=== PATIENT | female | born 1995 | race Caucasian/White ===

== ENCOUNTER 2016-04-29 14:19 | Emergency (ER) | payer MEDICAID ==
[~2016-04-29] VITALS: Ht 149.9 cm; Wt 41.0 kg
[~2016-04-29 14:19] MED LIST: CALC600T5 PO; PREN-46 PO; PREN1TAB67 PO
[2016-04-29 14:39] VITALS: Ht 149.9 cm; Wt 41.0 kg
[2016-04-29] MEDS ORDERED: IBUPROFEN 200 MG TAB ONE (15:44)
[2016-04-29] MEDS ORDERED: IBUPROFEN 200 MG TAB PO ONE (16:00)
[2016-04-29] MEDS ORDERED: IBUP400T22 PO (17:32)
--- NOTE | 2016-04-29 18:11 | RADRPT ---
PROCEDURE: XR Chest. CLINICAL INDICATION: Chest pain TECHNIQUE: Single frontal chest x-ray. COMPARISON: None. FINDINGS: No acute infiltrate, pleural effusion or pneumothorax is identified. Cardiomediastinal silhouette i s within normal limits. The osseous structures are unremarkable. IMPRESSION: 1. Unremarkable chest x-ray. RPTAT: QQ .Sohan Colon MD, MD Date Time Electronically viewed and signed by .Sohan Colon MD, on 04/29/2016 17:17 .R/
--- NOTE | 2016-04-29 18:21 | ERD ---
ER Documentation Chief Complaint Date/Time DATE: 04/29/16 TIME: 18:19 Chief Complaint INTERMITTENT CHEST PAIN X2-3 WEEKS HPI 21-year-old female with no significant past medical history presents the ED complaining of chest pain that started intermittently 1 month ago. States that it is predominantly in the left side of her chest. States that she has also been feeling nervous and anxious. Describes it as a sharp sensation and slightly radiates to her left arm. Denies any smoking, drug use, alcohol use. Denies any family history of heart attacks. Denies any fever, cough, rhinorrhea , wheezing, abdominal pain, nausea, vomiting. ROS All systems reviewed and are negative except as per history of present illness. Medications Home Meds Active Scripts Ibuprofen* (Motrin*) 400 Mg Tab, 400 MG PO Q6, #30 TAB Prov:KAYCE MC PA-C 04/29/16 Reported Medications Calcium Carbonate (CALCIUM) 600 Mg Tablet, 600 MG PO DAILY 09/24/13 Vits W-Ca,Fe,Fa(<1MG) ( Formula) 1 Each Tablet, 1 EACH PO DAILY 09/24/13 Vit #108/Iron/Fa ( ONE TABLET) 1 Each Tablet, 1 EACH PO DAILY 06/22/13 Allergies Allergies: Coded Allergies: No Known Allergy (Unverified , 10/03/13) PMhx/Soc History of Surgery: No Anesthesia Reaction: No Hx Neurological Disorder: No Hx Respiratory Disorders: No Hx Cardiac Disorders: No Hx Psychiatric Problems: No Hx Miscellaneous Medical Probl: No Hx Alcohol Use: No Hx Substance Use: No Hx Tobacco Use: No Physical Exam Vitals Vital Signs Date Time Temp Pulse Resp B/P Pulse Ox O2 Delivery O2 Flow Rate FiO2 04/29/16 14:39 98.4 75 18 110/58 99 Physical Exam Const: Low-mzz-sqfjjthuo, well-nourished. In no acute distress. Head: Atraumatic, normocephalic Eyes: Normal Conjunctiva without injection. No purulent discharge. PERRL. EOMI ENT: Normal external ear. Ear canal without erythema. Tympanic membrane pearly hoang without effusion or bulging. Nasal canal clear with normal turbinates. Moist oropharynx without tonsillar exudates. Non-erythematous pharynx. Uvula midline. No drooling. No trismus. Neck: Full range of motion. No meningismus. No cervical lymphadenopathy. Resp: Clear to auscultation bilaterally. No wheezing, rhonchi, rales, or crackles. No accessory muscle use. No retractions. Cardio: Regular rate and rhythm. No murmurs, rubs or gallops. Chest: Left-sided chest pain is reproducible upon palpation, tender to palpation. Abd: Soft, non tender, non distended. Normal bowel sounds. No palpable masses. No rebound tenderness. No guarding. Skin: No petechiae or rashes Back: No midline tenderness. No CVA tenderness. Ext: No cyanosis, or edema. Neur: Awake and alert. Psych: Normal Mood and Affect Results 24 hrs Current Medications Medications (Trade) Dose Ordered Sig/Berry Route PRN Reason Start Time Stop Time Status Last Admin Dose Admin Ibuprofen (Motrin) 400 mg ONCE ONCE PO 04/29/16 16:00 04/29/16 16:01 DC 04/29/16 15:45 Procedures/MDM This is a 21-year-old female with no significant past medical history presents the ED complaining of chest pain that started 1 month ago intermittently. Patient is afebrile nontoxic appearing. Patient has normal vital signs. A chest x-ray, EKG was ordered to further evaluate patient. She was treated here in the ED with ibuprofen with improvement of her pain. PROCEDURE: XR Chest. CLINICAL INDICATION: Chest pain TECHNIQUE: Single frontal chest x-ray. COMPARISON: None. FINDINGS: No acute infiltrate, pleural effusion or pneumothorax is identified. Cardiomediastinal silhouette is within normal limits. The osseous structures are unremarkable. IMPRESSION: 1. Unremarkable chest x-ray. EKG reviewed and interpreted by Dr. Luna Rate/Rhythm: [72 bpm, Normal Sinus Rhythm] No ectopy, no ST elevations, normal axis. QRS, ST, T-waves: [No changes consistent w/ acute ischemia] Impression: [No evidence of ischemia or arrhythmia] Low suspicion for acute myocardial infarction, pneumothorax, pulmonary embolism , AAA, aortic dissection, Boerhaave's syndrome, cardiac dysrhythmias,meningitis , intracranial bleed, seizure, stroke, TIA or other emergent conditions. Discharge medications: Ibuprofen Follow up with primary care physician in 1-2 days. Instructed patient to return to the ED sooner for any worsening symptoms. Patient's questions were answered. Patient understood and agreed with discharge plan. Patient discharged stable. Departure Diagnosis: Primary Impression: Chest pain Chest pain type: unspecified Qualified Code: R07.9 - Chest pain, unspecified type Condition: Stable Patient Instructions: Anxiety Reaction, Chest Wall Pain, Costochondritis Referrals: [facility] YOU HAVE RECEIVED A MEDICAL SCREENING EXAM AND THE RESULTS INDICATE THAT YOU DO NOT HAVE A CONDITION THAT REQUIRES URGENT TREATMENT IN THE EMERGENCY DEPARTMENT. FURTHER EVALUATION AND TREATMENT OF YOUR CONDITION CAN WAIT UNTIL YOU ARE SEEN IN YOUR DOCTORS OFFICE WITHIN THE NEXT 1-2 DAYS. IT IS YOUR RESPONSIBILITY TO MAKE AN APPOINTMENT FOR FOLOW-UP CARE. IF YOU HAVE A PRIMARY DOCTOR --you should call your primary doctor and schedule an appointment IF YOU DO NOT HAVE A PRIMARY DOCTOR YOU CAN CALL OUR PHYSICIAN REFERRAL HOTLINE AT IF YOU CAN NOT AFFORD TO SEE A PHYSICIAN YOU CAN CHOSE FROM THE FOLLOWING [facility] [address] [address] [facility]. [facility] [address] [facility] [address] [address] [facility] [address] [facility] [address] [facility]. [facility]. [address] [facility]. [facility] YOU HAVE RECEIVED A MEDICAL SCREENING EXAM AND THE RESULTS INDICATE THAT YOU DO NOT HAVE A CONDITION THAT REQUIRES URGENT TREATMENT IN THE EMERGENCY DEPARTMENT. FURTHER EVALUATION AND TREATMENT OF YOUR CONDITION CAN WAIT UNTIL YOU ARE SEEN IN YOUR DOCTORS OFFICE WITHIN THE NEXT 1-2 DAYS. IT IS YOUR RESPONSIBILITY TO MAKE AN APPOINTMENT FOR FOLOW-UP CARE. IF YOU HAVE A PRIMARY DOCTOR --you should call your primary doctor and schedule and appointment IF YOU DO NOT HAVE A PRIMARY DOCTOR YOU CAN CALL OUR PHYSICIAN REFERRAL HOTLINE AT . IF YOU CAN NOT AFFORD TO SEE A PHYSICIAN YOU CAN CHOSE FROM THE FOLLOWING [facility] INSTITUTIONS: [facility] [address] [place] [address] [facility] [address] [place] [address] [facility] + [address] [place] [address] [facility] Additional Instructions: FOLLOW UP WITH YOUR PRIMARY CARE PHYSICIAN TOMORROW.Return to this facility if you are not improving as expected. KAYCE MC PA-C Apr 29, 2016 18:21
== END 2016-04-29 18:00 | disposition home or self-care (01) ==
LOC: FTE 14:19
DX: R07.9 Chest pain, unspecified (principal)
CPT/HCPCS: 71010; 93005; Z7502

== ENCOUNTER 2016-05-05 14:10 | Emergency (ER) | payer MEDICAID ==
[~2016-05-05] VITALS: Ht 162.6 cm; Wt 41.5 kg
[~2016-05-05 14:10] MED LIST changes: +IBUP400T22 PO
[2016-05-05 14:12] VITALS: Ht 162.6 cm; Wt 41.5 kg
[2016-05-05 17:08] LABS: URINE BLOOD (Dip) POC Trace-lysed (NEGATIVE)
[2016-05-05] MEDS ORDERED: NITR-58 PO (18:24)
[2016-05-05] MEDS ORDERED: IBUP-1542 PO (18:24)
[2016-05-05 18:40] VITALS: BP 105/57; PULSE 114; RESP 20; TEMP 97.9
--- NOTE | 2016-05-05 20:33 | ERD ---
ER Documentation Chief Complaint Date/Time DATE: 05/05/16 TIME: 20:21 Chief Complaint CONTANT VAGINAL PAIN X2 DAYS HPI This is a 21 year old female presenting to ER for suprapubic pain and pain with urination starting this morning after intercourse. Patient states she has dysuria. No hematuria. No vaginal discharge or vaginal itching. No vaginal lesions or sores. No difficulty urinating or incontinence. A1. Denies chance of . LMP 04/13/16. Patient has an IUD and states that she would like it removed. Had the IUD placed 2 years ago. ROS All systems reviewed and are negative except as per history of present illness. Medications Home Meds Active Scripts Ibuprofen* (Motrin*) 600 Mg Tab, 600 MG PO Q6, #10 TAB Prov:RAUL HIGGINS NP 05/05/16 Nitrofurantoin Monohyd Macrocr* (Macrobid*) 100 Mg Capsr, 100 MG PO BID for 5 Days, CAP Prov:RAUL HIGGINS NP 05/05/16 Ibuprofen* (Motrin*) 400 Mg Tab, 400 MG PO Q6, #30 TAB Prov:KAYCE MC PA-C 04/29/16 Reported Medications Calcium Carbonate (CALCIUM) 600 Mg Tablet, 600 MG PO DAILY 09/24/13 Vits W-Ca,Fe,Fa(<1MG) ( Formula) 1 Each Tablet, 1 EACH PO DAILY 09/24/13 Vit #108/Iron/Fa ( ONE TABLET) 1 Each Tablet, 1 EACH PO DAILY 06/22/13 Allergies Allergies: Coded Allergies: No Known Allergy (Unverified , 10/03/13) PMhx/Soc Medical and Surgical Hx: pt denies Medical Hx History of Surgery: No Anesthesia Reaction: No Hx Neurological Disorder: No Hx Respiratory Disorders: No Hx Cardiac Disorders: No Hx Psychiatric Problems: No Hx Miscellaneous Medical Probl: No Hx Alcohol Use: No Hx Substance Use: No Hx Tobacco Use: No Smoking Status: Never smoker Physical Exam Vitals Vital Signs Date Time Temp Pulse Resp B/P Pulse Ox O2 Delivery O2 Flow Rate FiO2 05/05/16 18:40 97.9 114 20 105/57 05/05/16 14:12 98.1 121 18 125/69 98 Physical Exam Const: NAD, alert Head: Atraumatic Eyes: Normal Conjunctiva ENT: Normal External Ears, Nose and Mouth. Neck: Full range of motion..~ No meningismus. Resp: Clear to auscultation bilaterally Cardio: Regular rate and rhythm, no murmurs Abd: Soft, non tender, non distended. Normal bowel sounds Skin: No petechiae or rashes Back: No midline or flank tenderness Ext: No cyanosis, or edema Neur: Awake and alert Psych: Normal Mood and Affect : IUD in place in cervix. No vaginal discharge or foul odor. No vaginal lesions or sores. Results 24 hrs Laboratory Tests Test 05/05/16 17:08 Bedside Urine Blood Trace-lysed Bedside Urine Glucose (UA) Negative Bedside Urine Ketones (LAB) Negative Bedside Urine Leukocyte Esterase (L 1+ Bedside Urine Nitrite (LAB) Negative Bedside Urine Protein (LAB) Negative Bedside Urine pH (LAB) 5.5 Procedures/MDM ED course Urine collected and 1+ leukocyte esterase and trace blood. Pelvic exam performed. No obvious abnormalities. Verbal consent obtained. Using a speculum, the cervix was located and IUD noted to be in place in the cervix. IUD removed using removal forceps without complication. IUD removed fully intact. No bleeding. Patient had minimal pain during procedure and states that she does not having pain. No fevers. Vital signs are stable. Low suspicion for tubo-ovarian abscess, pelvic fibroids, ruptured ovarian cyst or pyelonephritis. Diagnosis is UTI. Patient is appropriate for outpatient management and will be discharged with Macrobid and ibuprofen. Instructed patient to follow up with [facility] in the next 2-3 days for reassessment Resources provided. Return to ED for any new or worsening symptoms. Patient verbalizes understanding. All questions answered at discharge. Departure Diagnosis: Primary Impression: UTI (urinary tract infection) Urinary tract infection type: site unspecified Hematuria presence: with hematuria Qualified Code: N39.0 - Urinary tract infection with hematuria, site unspecified Condition: Stable Patient Instructions: Understanding Urinary Tract Infections (UTIs) Referrals: [facility] [address] [facility] [address] [place] [address] OFFICE FAX JAQUAN WATERS [address] [place] [address] HARRIS, MARY [address], [place] [address] DR HAILE, HESHMAT [address] [facility], [address], [place] [address] DR GAN, [facility] [address] [facility], [place] [address] [facility] [address] [place] [address] [facility], [facility] [address] - DR AGUILAR, ETHAN [address], [place] [address] DR ALEMAN, RUBI [address] [facility]. [address], [place] [address] DR PLAZA, [facility] [address] [place] [address] Additional Instructions: Llame al doctor MAANA y ernesto indu JOSEPH PARA DENTRO DE 2-3 RANGEL.Dgale a la secretaria que nosotros le instruimos hacer esta joseph.Avise o llame si negrete condicin se empeora antes de la joseph. Regresa aqui si peor o no mejor. Return to ED for any high fever, chest pain, difficulty breathing, shortness breath, wheezing, vomiting, diarrhea, abdominal pain or any new or worsening symptoms. RAUL HIGGINS NP May 05, 2016 20:32
== END 2016-05-05 18:30 | disposition home or self-care (01) ==
LOC: FTE 14:10
DX: N39.0 Urinary tract infection, site not specified (principal)
CPT/HCPCS: 81003; Z7502; 99284

== ENCOUNTER 2016-12-14 21:13 | Emergency (ER) | payer MEDICAID ==
[~2016-12-14] VITALS: Ht 144.8 cm; Wt 42.5 kg
[~2016-12-14 21:13] MED LIST changes: +IBUP-1542 PO; +NITR-58 PO
[2016-12-14 21:52] VITALS: Ht 144.8 cm; Wt 42.5 kg
[2016-12-14 23:01] LABS: BASOPHIL # 0.1 10^3/ul (0.0-0.1); BASOPHILS % 0.6 % (0.0-2.0); EOSINOPHILS # 0.2 10^3/ul (0.0-0.5); HEMATOCRIT 37.6 % (37.0-47.0); HEMOGLOBIN 12.7 g/dl (12.0-16.0); LYMPHOCYTES # 3.8 10^3/ul (0.8-2.9); MEAN CORPUSCULAR HEMOGLOBIN 30.6 pg (29.0-33.0); MEAN CORPUSCULAR HGB CONC 33.8 g/dl (32.0-37.0); MEAN CORPUSCULAR VOLUME 90.6 fl (72.0-104.0); MEAN PLATELET VOLUME 10.3 fl (7.4-10.4); MONOCYTE # 0.8 10^3/ul (0.3-0.9); MONOCYTES % 8.7 % (0.0-13.0); NEUTROPHILS % 44.4 % (30.0-74.0); PLATELET COUNT 381 10^3/UL (140-415); RED BLOOD COUNT 4.15 10^6/ul (4.20-5.40); RED CELL DISTRIBUTION WIDTH 12.8 % (11.5-14.5); WHITE BLOOD COUNT 8.6 10^3/ul (4.8-10.8)
[2016-12-14 23:18] LABS: INR 0.96; PROTIME 12.8 Sec (12.2-14.2)
[2016-12-14 23:19] LABS: ANION GAP 14 (8-16); BLOOD UREA NITROGEN 13 mg/dl (7-20); CALCIUM 9.6 mg/dl (8.4-10.2); CARBON DIOXIDE 29 mmol/L (21-31); CHLORIDE 99 mmol/L (97-110); CREATININE 0.81 mg/dl (0.44-1.00); GLUCOSE 91 mg/dl (70-220); POTASSIUM 3.7 mmol/L (3.5-5.1); SODIUM 138 mmol/L (135-144)
[2016-12-14 23:32] LABS: TROPONIN-I < 0.012 ng/ml (0.00-0.12)
--- NOTE | 2016-12-14 23:47 | RADRPT ---
PROCEDURE: XR Chest. CLINICAL INDICATION: Chest pain. TECHNIQUE: Single frontal view of the chest. COMPARISON: None. FINDINGS: The cardiomediastinal silhouette is within normal limits. The lungs are clear. No signs of pleural f luid or pneumothorax are seen. The osseous structures and soft tissues are unremarkable. IMPRESSION: No evidence for active cardiopulmonary disease. RPTAT: UU Physician Roderick Date Time Electronically viewed and signed by Physician Roderick on 12/14/2016 23:46 RS/
[2016-12-14] MEDS ORDERED: IBUP400T22 PO (23:58)
[2016-12-14] MEDS ORDERED: CYCL-319 PO (23:58)
[2016-12-15 00:16] VITALS: BP 101/58; PULSE 65; RESP 16
--- NOTE | 2016-12-15 05:50 | ERD ---
ER Documentation Chief Complaint Date/Time DATE: 12/15/16 TIME: 05:41 Chief Complaint CHEST PAIN X1DAY (RAUL HIGGINS NP) HPI This is a 21 year old female presenting to ER with chest wall pain, neck pain and paraesthesia to left upper arm 3 days patient states she has numbness and tingling to left arm upper arm that extends from left lateral neck. Patient also has chest wall pain that she describes as sharp and stabbing. Patient rates pain 10/10. Patient did not take any medications at home for this. Denies headache. No cough, shortness breath or difficulty breathing. Patient states she has intermittent weakness to left side. (RAUL HIGGINS NP) ROS All systems reviewed and are negative except as per history of present illness. (RAUL HIGGINS NP) Medications Home Meds Active Scripts Ibuprofen* (Motrin*) 400 Mg Tab, 400 MG PO Q6, #10 TAB Prov:RAUL HIGGINS NP 12/14/16 Cyclobenzaprine Hcl* (Cyclobenzaprine Hcl*) 10 Mg Tablet, 10 MG PO TID, #15 TAB Prov:RAUL HIGGINS NP 12/14/16 Ibuprofen* (Motrin*) 600 Mg Tab, 600 MG PO Q6, #10 TAB Prov:RAUL HIGGINS NP 05/05/16 Nitrofurantoin Monohyd Macrocr* (Macrobid*) 100 Mg Capsr, 100 MG PO BID for 5 Days, CAP Prov:RAUL HIGGINS NP 05/05/16 Ibuprofen* (Motrin*) 400 Mg Tab, 400 MG PO Q6, #30 TAB Prov:KAYCE MC PA-C 04/29/16 Reported Medications Calcium Carbonate (CALCIUM) 600 Mg Tablet, 600 MG PO DAILY 09/24/13 Vits W-Ca,Fe,Fa(<1MG) ( Formula) 1 Each Tablet, 1 EACH PO DAILY 09/24/13 Vit #108/Iron/Fa ( ONE TABLET) 1 Each Tablet, 1 EACH PO DAILY 06/22/13 Allergies Allergies: Coded Allergies: No Known Allergy (Unverified , 10/03/13) PMhx/Soc Medical and Surgical Hx: pt denies Medical Hx, pt denies Surgical Hx History of Surgery: No Anesthesia Reaction: No Hx Neurological Disorder: No Hx Respiratory Disorders: No Hx Cardiac Disorders: No Hx Psychiatric Problems: No Hx Miscellaneous Medical Probl: No Hx Alcohol Use: No Hx Substance Use: No Hx Tobacco Use: No Smoking Status: Never smoker (RAUL HIGGINS NP) Physical Exam Vitals Vital Signs Date Time Temp Pulse Resp B/P Pulse Ox O2 Delivery O2 Flow Rate FiO2 12/15/16 00:16 65 16 101/58 100 Room Air 12/14/16 21:52 98.7 88 16 104/59 100 (SHELLI BLOOD MD) Physical Exam Const: Alert, [id number] Head: Atraumatic Eyes: Normal Conjunctiva ENT: Normal External Ears, Nose and Mouth. Neck: Full range of motion..~ No meningismus. Resp: Clear to auscultation bilaterally. No wheezing, rhonchi or crackles. Cardio: Regular rate and rhythm, no murmurs Abd: Soft, non tender, non distended. Normal bowel sounds Skin: No petechiae or rashes Back: No midline or flank tenderness Ext: No cyanosis, or edema. Full mobility to bilateral upper extremities. Strength is equal bilaterally. Paresthesia to lateral left upper arm. Sensation is fully intact. Neur: Awake and alert Psych: Normal Mood and Affect (RAUL HIGGINS NP) Result Diagram: 12/14/16225012/14/162250 Results 24 hrs Laboratory Tests Test 12/14/16 22:51 White Blood Count 8.610^3/ul Red Blood Count 4.1510^6/ul Hemoglobin 12.7g/dl Hematocrit 37.6% Mean Corpuscular Volume 90.6fl Mean Corpuscular Hemoglobin 30.6pg Mean Corpuscular Hemoglobin Concent 33.8g/dl Red Cell Distribution Width 12.8% Platelet Count 02915^3/UL Mean Platelet Volume 10.3fl Neutrophils % 44.4% Lymphocytes % 44.0% Monocytes % 8.7% Eosinophils % 2.0% Basophils % 0.6% Nucleated Red Blood Cells % 0.0/100WBC Neutrophils # (Manual) 410^3/ul Lymphocytes # 3.810^3/ul Monocytes # 0.810^3/ul Eosinophils # 0.210^3/ul Basophils # 0.110^3/ul Nucleated Red Blood Cells # 0.010^3/ul Prothrombin Time 12.8Sec Prothrombin Time Ratio 1.0 INR International Normalized Ratio 0.96 Activated Partial Thromboplast Time 26.0Sec Sodium Level 138mmol/L Potassium Level 3.7mmol/L Chloride Level 99mmol/L Carbon Dioxide Level 29mmol/L Anion Gap 14 Blood Urea Nitrogen 13mg/dl Creatinine 0.81mg/dl Glucose Level 91mg/dl Calcium Level 9.6mg/dl Troponin I < 0.012ng/ml (SHELLI BLOOD MD) Procedures/MDM [place] [address] Radiology Main Line: [phone] DIAGNOSTIC IMAGING REPORT Patient: AMIRA TALAMANTES : 1995 Age: 21 Sex: F MR #: [id number] DOS: 12/14/162238 Ordering MD: RAUL HIGGINS NP Location: [facility] Room/Bed: PROCEDURE: XR Chest. CLINICAL INDICATION: Chest pain. TECHNIQUE: Single frontal view of the chest. COMPARISON: None. FINDINGS: The cardiomediastinal silhouette is within normal limits. The lungs are clear. No signs of pleural fluid or pneumothorax are seen. The osseous structures and soft tissues are unremarkable. IMPRESSION: No evidence for active cardiopulmonary disease. EKG: As interpreted by myself and Dr. Blood Rate/Rhythm: Normal sinus rhythm with right bundle branch block with heart rate 67 bpm QRS, ST, T-waves: No changes consistent w/ acute ischemia Impression: No evidence of ischemia or arrhythmia MDM: This is a 21-year-old female who presents the emergency department with chest wall pain, neck pain and left upper arm paresthesia 3 days. Neuro exam is unremarkable. Strength is strong and equal bilaterally. No neuro deficits. Chest wall pain is reproducible with palpation of chest wall. CBC shows no significant anemia or infection. BMP shows no significant electrolyte imbalance. EKG shows normal sinus rhythm with right bundle branch block with heart rate 67 bpm. Chest x-ray reviewed by radiologist as no evidence for active cardiopulmonary disease. Vital signs are stable. Patient appears alert and in no acute distress throughout ED visit. Pain is tolerable. Dr. Blood consulted regarding this patient and he also examined patient at bedside. We agree that patient is appropriate for outpatient management. Differential diagnosis includes but not limited to pneumonia, bronchitis, pleurisy, costochondritis, gastroesophageal reflux,musculoskeletal chest pain and esophageal spasm. Low suspicion for acute coronary syndrome, pulmonary embolism, pneumothorax, aortic dissection and myocardial infarction. Patient is appropriate for outpatient management and will be discharged as stable. Instructed patient to follow up with primary care provider in the next 24-48 hours. Return to ED for worsening pain, abdominal pain, vomiting, diarrhea , high fever or any new or worsening symptoms. Patient verbalizes understanding. All questions answered at discharge. (RAUL HIGGINS NP) Attending addendum: I examined this patient and she had no consistent neurologic deficit. She gave very poor effort on motor testing of her left arm , but was noted to be using it normally to carry her bag. When I tested her strength in both arms at the same time, she gave minimal effort with her left arm, but when I tested it in isolation she had full strength. She gave inconsistent report of subjective sensory deficit in a patchy distribution in the upper arm only. She may have pure sensory radiculopathy, but there is no indication for neuroimaging at this time. She was advised on return precautions and the need for outpatient follow-up if her symptoms persist. (SHELLI BLOOD MD) Departure Diagnosis: Primary Impression: Chest wall pain Condition: Stable Patient Instructions: Chest Wall Pain, Costochondritis Referrals: [facility] YOU HAVE RECEIVED A MEDICAL SCREENING EXAM AND THE RESULTS INDICATE THAT YOU DO NOT HAVE A CONDITION THAT REQUIRES URGENT TREATMENT IN THE EMERGENCY DEPARTMENT. FURTHER EVALUATION AND TREATMENT OF YOUR CONDITION CAN WAIT UNTIL YOU ARE SEEN IN YOUR DOCTORS OFFICE WITHIN THE NEXT 1-2 DAYS. IT IS YOUR RESPONSIBILITY TO MAKE AN APPOINTMENT FOR FOLOW-UP CARE. IF YOU HAVE A PRIMARY DOCTOR --you should call your primary doctor and schedule an appointment IF YOU DO NOT HAVE A PRIMARY DOCTOR YOU CAN CALL OUR PHYSICIAN REFERRAL HOTLINE AT IF YOU CAN NOT AFFORD TO SEE A PHYSICIAN YOU CAN CHOSE FROM THE FOLLOWING [facility] [address] [facility]. [facility] [address] [facility]. [facility] [address] [facility]. [facility] [address] [facility] [address] [facility]. [facility] [address] [facility]. [facility] YOU HAVE RECEIVED A MEDICAL SCREENING EXAM AND THE RESULTS INDICATE THAT YOU DO NOT HAVE A CONDITION THAT REQUIRES URGENT TREATMENT IN THE EMERGENCY DEPARTMENT. FURTHER EVALUATION AND TREATMENT OF YOUR CONDITION CAN WAIT UNTIL YOU ARE SEEN IN YOUR DOCTORS OFFICE WITHIN THE NEXT 1-2 DAYS. IT IS YOUR RESPONSIBILITY TO MAKE AN APPOINTMENT FOR FOLOW-UP CARE. IF YOU HAVE A PRIMARY DOCTOR --you should call your primary doctor and schedule and appointment IF YOU DO NOT HAVE A PRIMARY DOCTOR YOU CAN CALL OUR PHYSICIAN REFERRAL HOTLINE AT . IF YOU CAN NOT AFFORD TO SEE A PHYSICIAN YOU CAN CHOSE FROM THE FOLLOWING [facility] INSTITUTIONS: [facility] [address] [place] [address] [facility] [address] [place] [address] [facility] [address] [place] [address] Additional Instructions: Call your primary care doctor TOMORROW for an appointment during the next 2-3 days.See the doctor sooner or return here if your condition worsens before your appointment time. Return to ED for any high fever, chest pain, difficulty breathing, shortness breath, wheezing, vomiting, diarrhea, abdominal pain or any new or worsening symptoms. RAUL HIGGINS NP Dec 15, 2016 05:50 SHELLI BLOOD MD Dec 15, 2016 06:54
== END 2016-12-15 00:17 | disposition home or self-care (01) ==
LOC: FTE 21:13
DX: R07.89 Other chest pain (principal)
CPT/HCPCS: 36415; 71010; 80048; 84484; 85025; 85610; 85730; 93005; Z7502